=== PATIENT | male | born 1935 | race Caucasian/White ===

== ENCOUNTER → 2016-11-03 | Outpatient (CLI) | payer MEDICARE ==
[2016-11-03 12:31] LABS: INTERNATIONAL NORMALIZED RATIO 2.7 RATIO; PROTHROMBIN TIME - PATIENT 31.6 SEC (9.8-11.6)
== END ==
LOC: PLAB 10:55
DX: Z79.01 Long term (current) use of anticoagulants (principal)
CPT/HCPCS: 36415; 85610

== ENCOUNTER → 2017-01-26 | Outpatient (CLI) | payer MEDICARE ==
[2017-01-26 10:35] LABS: INTERNATIONAL NORMALIZED RATIO 2.5 RATIO; PROTHROMBIN TIME - PATIENT 28.2 SEC (9.8-11.6)
== END ==
LOC: PLAB 08:46
DX: Z79.01 Long term (current) use of anticoagulants (principal)
CPT/HCPCS: 36415; 85610

== ENCOUNTER → 2017-06-11 | Outpatient (CLI) | payer MEDICARE ==
[2017-06-11 09:28] LABS: INTERNATIONAL NORMALIZED RATIO 3.2 RATIO; PROTHROMBIN TIME - PATIENT 36.8 SEC (9.8-11.6)
== END ==
LOC: PLAB 08:26
DX: Z51.81 Encounter for therapeutic drug level monitoring (principal)
CPT/HCPCS: 36415; 85610

== ENCOUNTER → 2017-07-13 | Outpatient (CLI) | payer MEDICARE ==
[2017-07-13 12:44] LABS: INTERNATIONAL NORMALIZED RATIO 2.9 RATIO; PROTHROMBIN TIME - PATIENT 33.5 SEC (9.8-11.6)
== END ==
LOC: PLAB 09:54
DX: Z51.81 Encounter for therapeutic drug level monitoring (principal); Z79.01 Long term (current) use of anticoagulants
CPT/HCPCS: 36415; 85610

== ENCOUNTER → 2017-08-10 | Outpatient (CLI) | payer MEDICARE ==
[2017-08-10 12:33] LABS: INTERNATIONAL NORMALIZED RATIO 2.2 RATIO
== END ==
LOC: PLAB 11:18
DX: Z79.01 Long term (current) use of anticoagulants (principal)
CPT/HCPCS: 36415; 85610

== ENCOUNTER → 2017-10-26 | Outpatient (CLI) | payer MEDICARE ==
[2017-10-26 09:38] LABS: INTERNATIONAL NORMALIZED RATIO 2.6 RATIO; PROTHROMBIN TIME - PATIENT 25.9 SEC (9.8-11.6)
== END ==
LOC: PLAB 09:03
DX: Z51.81 Encounter for therapeutic drug level monitoring (principal); Z86.718 Personal history of other venous thrombosis and embolism
CPT/HCPCS: 36415; 85610

== ENCOUNTER → 2018-01-04 | Outpatient (CLI) | payer MEDICARE ==
[2018-01-04 10:41] LABS: INTERNATIONAL NORMALIZED RATIO 2.8 RATIO; PROTHROMBIN TIME - PATIENT 28.1 SEC (9.8-11.6)
== END ==
LOC: PLAB 07:57
DX: Z51.81 Encounter for therapeutic drug level monitoring (principal)
CPT/HCPCS: 36415; 85610

== ENCOUNTER → 2018-03-04 | Outpatient (CLI) | payer MEDICARE ==
[2018-03-04 09:18] LABS: INTERNATIONAL NORMALIZED RATIO 2.1 RATIO; PROTHROMBIN TIME - PATIENT 20.9 SEC (9.8-11.6)
== END ==
LOC: PLAB 01-01 09:34
DX: Z51.81 Encounter for therapeutic drug level monitoring (principal); Z79.899 Other long term (current) drug therapy; Z86.718 Personal history of other venous thrombosis and embolism
CPT/HCPCS: 36415; 85610